=== PATIENT | male | born 1980 | race Hispanic/Latino ===

== ENCOUNTER 2017-08-17 14:55 | Emergency (ER) | payer OTHER ==
[~2017-08-17] VITALS: Ht 165.1 cm; Wt 88.0 kg
[2017-08-17] MEDS ORDERED: ALBUTEROL/IPRATROPIUM 3 ML NEB NEB ONE (15:30)
[2017-08-17 16:40] VITALS: BP 5/5
== END 2017-08-17 16:40 | disposition home or self-care (01) ==
LOC: FSED 14:55
DX: R05 Cough (principal); J20.9 Acute bronchitis, unspecified
CPT/HCPCS: 71046; 87400; 99283